=== PATIENT | male | born 1985 | race African-American/Black ===

== ENCOUNTER 2020-09-03 02:32 | Emergency (ER) | payer SELFPAY ==
[~2020-09-03] VITALS: Ht 170.2 cm; Wt 68.0 kg
--- NOTE | 2020-09-03 02:44 | NUR ---
ED Nurse Note: Patient walked in from home d/t c/o auditory hallucinations, states he "hears voices". Patient aao x 4 and ambulatory with steady gait. Patient denies SI/HI. Patient in stable condition during assessment.
[2020-09-03 02:45] VITALS: BP 133/85
--- NOTE | 2020-09-03 03:21 | NUR ---
ED Nurse Note: COVID swab collected and sent to lab along with bloodwork.
--- NOTE | 2020-09-03 03:21 | NUR ---
ED Nurse Note: Provided patient with urinal, states he is unable to provide urine sample at this time d/t he just went to the restroom. states he will try in a few minutes.
[2020-09-03 03:29] LABS: BASOPHILS % (AUTO) 3.4 % (0.0-2.0); EOSINOPHILS % (AUTO) 6.1 % (0.0-3.0); HEMATOCRIT 40.4 % (42.0-52.0); HEMOGLOBIN 13.8 G/DL (14.2-18.0); LYMPHOCYTES % (AUTO) 37.8 % (20.0-45.0); MEAN CORPUSCULAR VOLUME 91 FL (80-99); MONOCYTES % (AUTO) 13.5 % (1.0-10.0); NEUTROPHILS % (AUTO) 39.2 % (45.0-75.0); PLATELET COUNT 265 K/UL (150-450); RED BLOOD COUNT 4.42 M/UL (4.70-6.10); RED CELL DISTRIBUTION WIDTH 12.4 % (11.6-14.8); WHITE BLOOD COUNT 5.7 K/UL (4.8-10.8)
[2020-09-03 03:39] LABS: ANION GAP 6 mmol/L (5-15); BLOOD UREA NITROGEN 15 mg/dL (7-18); CALCIUM 8.8 MG/DL (8.5-10.1); CARBON DIOXIDE 29 MMOL/L (21-32); CHLORIDE 104 MMOL/L (98-107); CREATININE 1.3 MG/DL (0.55-1.30); POTASSIUM 4.1 MMOL/L (3.5-5.1); SODIUM 139 MMOL/L (136-145)
[2020-09-03 03:43] LABS: ALANINE AMINOTRANSFERASE 33 U/L (12-78); ALBUMIN 3.9 G/DL (3.4-5.0); ALKALINE PHOSPHATASE 80 U/L (46-116); ASPARTATE AMINO TRANSFERASE 29 U/L (15-37); BILIRUBIN,TOTAL 0.9 MG/DL (0.2-1.0)
--- NOTE | 2020-09-03 04:04 | Emergency Room Report ---
History of Present Illness General Chief Complaint: Behavioral Complaint Source: Patient Present Illness HPI 35-year-old male with a self-reported history of depression and anxiety here with suicidal ideation. Patient is homeless and says "I smoke any drug I get my hands on every day." Denies alcohol use. Says that he has been feeling suicidal over the past several days to weeks and now is suicidal with a plan to slit his wrists or overdose on drugs. Says "I am just tired of feeling this way." He is demanding admission at a psychiatric facility. Patient says that he has been admitted at psychiatric facilities in the past and has been prescribed psychiatric medications but has not taken them. Does not know how long it has been since he has last been at a psychiatric facility. Denies homicidal ideation or hallucinations. Allergies: Coded Allergies: No Known Allergies (Unverified , 09/03/20) COVID-19 Screening Contact w/high risk pt: No Experienced COVID-19 symptoms?: No COVID-19 Testing performed RANCH MANAGER: No Nursing Documentation-[facility] Past Medical History: No Stated History Review of Systems All Other Systems: negative except mentioned in HPI Physical Exam Vital Signs Date Time Temp Pulse Resp B/P (MAP) Pulse Ox O2 Delivery O2 Flow Rate FiO2 09/03/20 02:39 97.3 99 18 135/90 (105) 99 Room Air Sp02 EP Interpretation: reviewed, normal General Appearance: no apparent distress, alert, non-toxic, other - Disheveled appearing, foul-smelling Head: normocephalic, atraumatic Eyes: bilateral eye normal inspection, bilateral eye PERRL ENT: hearing grossly normal, normal pharynx, no angioedema, normal voice Neck: full range of motion, supple/symm/no masses Respiratory: chest non-tender, lungs clear, normal breath sounds, speaking full sentences Cardiovascular #1: regular rate, rhythm, no edema Cardiovascular #2: 2+ carotid (R), 2+ carotid (L), 2+ radial (R), 2+ radial (L), 2+ dorsalis pedis (R), 2+ dorsalis pedis (L) Gastrointestinal: normal bowel sounds, non tender, soft, non-distended, no guarding, no rebound Rectal: deferred Genitourinary: normal inspection, no CVA tenderness Musculoskeletal: back normal, normal range of motion, gait/station normal, non- tender Neurologic: alert, motor strength/tone normal, oriented x3, sensory intact, responsive, speech normal Psychiatric: judgement/insight normal, memory normal, mood/affect normal, no suicidal/homicidal ideation Lymphatic: no adenopathy Medical Decision Making Diagnostic Impression: Primary Impression: Suicidal ideation ER Course Laboratory Tests Test 09/03/20 03:16 09/03/20 03:34 White Blood Count 5.7 K/UL (4.8-10.8) Red Blood Count 4.42 M/UL (4.70-6.10) L Hemoglobin 13.8 G/DL (14.2-18.0) L Hematocrit 40.4 % (42.0-52.0) L Mean Corpuscular Volume 91 FL (80-99) Mean Corpuscular Hemoglobin 31.1 PG (27.0-31.0) H Mean Corpuscular Hemoglobin Concent 34.0 G/DL (32.0-36.0) Red Cell Distribution Width 12.4 % (11.6-14.8) Platelet Count 265 K/UL (150-450) Mean Platelet Volume 5.6 FL (6.5-10.1) L Neutrophils (%) (Auto) 39.2 % (45.0-75.0) L Lymphocytes (%) (Auto) 37.8 % (20.0-45.0) Monocytes (%) (Auto) 13.5 % (1.0-10.0) H Eosinophils (%) (Auto) 6.1 % (0.0-3.0) H Basophils (%) (Auto) 3.4 % (0.0-2.0) H Sodium Level 139 MMOL/L (136-145) Potassium Level 4.1 MMOL/L (3.5-5.1) Chloride Level 104 MMOL/L (98-107) Carbon Dioxide Level 29 MMOL/L (21-32) Anion Gap 6 mmol/L (5-15) Blood Urea Nitrogen 15 mg/dL (7-18) Creatinine 1.3 MG/DL (0.55-1.30) Estimated Glomerular Filtration Rate > 60 mL/min (>60) Glucose Level 90 MG/DL (74-106) Calcium Level 8.8 MG/DL (8.5-10.1) Total Bilirubin 0.9 MG/DL (0.2-1.0) Aspartate Amino Transferase (AST) 29 U/L (15-37) Alanine Aminotransferase (ALT) 33 U/L (12-78) Alkaline Phosphatase 80 U/L (46-116) Total Protein 7.7 G/DL (6.4-8.2) Albumin 3.9 G/DL (3.4-5.0) Globulin 3.8 g/dL Albumin/Globulin Ratio 1.0 (1.0-2.7) Salicylates Level < 0.2 ug/mL (2.8-20) L Acetaminophen Level < 2 MCG/ML (10-30) L Serum Alcohol < 3 mg/dL Urine Opiates Screen Negative (NEGATIVE) Urine Barbiturates Screen Negative (NEGATIVE) Phencyclidine (PCP) Screen Negative (NEGATIVE) Urine Amphetamines Screen Positive (NEGATIVE) H Urine Benzodiazepines Screen Negative (NEGATIVE) Urine Cocaine Screen Negative (NEGATIVE) Urine Marijuana (THC) Screen Positive (NEGATIVE) H Microbiology Date/Time Source Procedure Growth Status 09/03/20 03:16 Nasopharynx SARS-CoV-2 RdRp Gene Assay - Final Complete 35-year-old male here with suicidal ideation. Patient has a plan to commit suicide by drug overdose or slitting his wrists. Urine drug screen positive for THC and amphetamines. Otherwise patient was medically cleared. Currently awaiting placement at psychiatric facility. Signed out to oncoming physician Dr. Box. Last Vital Signs Date Time Temp Pulse Resp B/P (MAP) Pulse Ox O2 Delivery O2 Flow Rate FiO2 09/03/20 02:45 79 18 Room Air 09/03/20 02:45 97.9 133/85 100 Referrals: NOT CHOSEN TANVI/,REFERRING (PCP) Julian Cohen M.D. Sep 03, 2020 04:04
--- NOTE | 2020-09-03 04:30 | NUR ---
ED Nurse Note: All belongings inventoried and placed in locker #2
--- NOTE | 2020-09-03 05:30 | NUR ---
ED Nurse Note: patient has a [employer] cellphone, added to belongings list and placed in locker #2 with the rest of belongings.
--- NOTE | 2020-09-03 05:30 | NUR ---
HAND-OFF: Report given to KEN Parada.
--- NOTE | 2020-09-03 05:40 | NUR ---
ED Nurse Note: Recieved report from KEN Gross to resume care, pt is here on voluntary sttu for psych placement for suicidl ideations, pt ambulated to bed with steady gait, is awake, alert and oriented x 4, denies pain but remains with suicidal thoughts, denies homicidal ideations or ny hallucinations, ws informed can be hostile at times, currently calm an cooperative, room checked and clear, pt on constant observation and suicidal precautions, will continue to closely monitor while waiting for psych placement.
--- NOTE | 2020-09-03 07:20 | NUR ---
HAND-OFF: Report given to KEN Church.
--- NOTE | 2020-09-03 07:40 | NUR ---
ED Nurse Note: pt sleeping easily awakens to verbal stimuli. pt aware of dietary tray given. denies new c/o or hygiene needs.
[2020-09-03 10:38] VITALS: BP 139/86
--- NOTE | 2020-09-03 10:39 | NUR ---
ED Nurse Note:pt easily awakens to verbal stimuli. pt aware of plan looking for voluntary psych placement. denies c/o
--- NOTE | 2020-09-03 12:23 | NUR ---
ED Nurse Note: pt awake amb steady gait to brp, no c/o
--- NOTE | 2020-09-03 14:20 | NUR ---
ED Nurse Note: pt sleeping declines po intake. remains cooperative with rn
--- NOTE | 2020-09-03 15:09 | NUR ---
ED Nurse Note: pt aware to obtain urine sample.
--- NOTE | 2020-09-03 15:43 | NUR ---
ED Nurse Note: urine sample voided and sent.
[2020-09-03 15:56] LABS: APPEARANCE,URINE CLOUDY; BILIRUBIN, URINE NEGATIVE (NEGATIVE); GLUCOSE, URINE (UA) NEGATIVE (NEGATIVE); KETONES,URINE NEGATIVE (NEGATIVE); LEUKOCYTE ESTERASE ,URINE 2+ (NEGATIVE); NITRITE,URINE NEGATIVE (NEGATIVE); PH,URINE 8 (4.5-8.0); PROTEIN,URINE NEGATIVE (NEGATIVE); UROBILINOGEN,URINE 8 MG/DL (0.0-1.0)
[2020-09-03 15:59] LABS: COLOR,URINE YELLOW
--- NOTE | 2020-09-03 16:50 | NUR ---
ED Nurse Note: pt awake and ambuiating to brp. denies new c/o. awaiting psych eval. pt cooperative
[2020-09-03 19:00] VITALS: BP 133/84
--- NOTE | 2020-09-03 19:00 | NUR ---
ED Nurse Note: pt is calm and sleeping. vss, nad.
--- NOTE | 2020-09-03 20:00 | NUR ---
ED Nurse Note: pt is calm and sleeping. vss, nad
--- NOTE | 2020-09-03 21:00 | NUR ---
ED Nurse Note: pt is calm and sleeping. vss, nad
--- NOTE | 2020-09-04 | NUR ---
ED Nurse Note: pt is calm and sleeping. vss, nad
[2020-09-04 02:53] VITALS: BP 130/76
--- NOTE | 2020-09-04 02:53 | NUR ---
ED Nurse Note: pt is calm and sleeping. vss, nad
[2020-09-04 05:10] VITALS: BP 129/71
--- NOTE | 2020-09-04 05:11 | NUR ---
ED Nurse Note: pt is calm and sleeping. vss, nad
[2020-09-04 07:38] VITALS: BP 126/68
--- NOTE | 2020-09-04 07:42 | NUR ---
ED Nurse Note: received report from Jose Haider RN for continuity of care. Pt on bed, asleep nad noted.
[2020-09-04] MEDS ORDERED: CEPHALEXIN500 M1 ORAL (09:05)
--- NOTE | 2020-09-04 09:12 | NUR ---
ED Nurse Note: pt consumed breakfast meal.
[2020-09-04] MEDS ORDERED: Cephalexin 500mg cap ORAL ONE (09:15)
--- NOTE | 2020-09-04 09:55 | NUR ---
ED Nurse Note: Report was given to [facility], in [facility] for transfer of care. Pt on bed, awake and alert x 4, cooperative to care. updated regarding transfer.
[2020-09-04 10:22] VITALS: BP 121/66
--- NOTE | 2020-09-04 10:22 | NUR ---
ED Nurse Note: pt was transferred to OB under the care of Dr. Arenas. Report was given to [facility] staff in [facility]. Pt was picked up by [facility]; pt was transferred on stable condition; all belongings was sent to pt.
== END 2020-09-04 10:30 ==
LOC: EMR 02:52
DX: R45.851 Suicidal ideations (principal); Z59.0 Homelessness; F32.9 Major depressive disorder, single episode, unspecified; F41.9 Anxiety disorder, unspecified
CPT/HCPCS: 36415; 80053; 80307; 81001; 85025; 87086; 99285; G0480; U0002